=== PATIENT | male | born 1970 | race Caucasian/White ===

== ENCOUNTER → 2023-12-14 07:45 | Outpatient (REF) | payer OTHER, SELFPAY | LOC: WOUND 07:45 | PROVIDERS: ATTENDING PHYSICIAN Surgery; FAMILY PHYSICIAN Registered Nurse | DX: I83.214 Varicose veins of right lower extremity with both ulcer of heel and midfoot and inflammation (principal); I83.224 Varicose veins of left lower extremity with both ulcer of heel and midfoot and inflammation; L97.412 Non-pressure chronic ulcer of right heel and midfoot with fat layer exposed; L97.422 Non-pressure chronic ulcer of left heel and midfoot with fat layer exposed; I87.2 Venous insufficiency (chronic) (peripheral); I73.9 Peripheral vascular disease, unspecified; D56.1 Beta thalassemia; Z86.19 Personal history of other infectious and parasitic diseases; Z72.0 Tobacco use; G89.4 Chronic pain syndrome; R74.8 Abnormal levels of other serum enzymes | CPT/HCPCS: 11042; 99204 ==

== ENCOUNTER → 2024-01-04 10:38 | Outpatient (REF) | payer OTHER, SELFPAY | LOC: WOUND 10:38 | PROVIDERS: ATTENDING PHYSICIAN Surgery; FAMILY PHYSICIAN Registered Nurse | DX: I83.214 Varicose veins of right lower extremity with both ulcer of heel and midfoot and inflammation (principal); L97.412 Non-pressure chronic ulcer of right heel and midfoot with fat layer exposed; L97.422 Non-pressure chronic ulcer of left heel and midfoot with fat layer exposed; I87.2 Venous insufficiency (chronic) (peripheral); I73.9 Peripheral vascular disease, unspecified; D56.1 Beta thalassemia; Z90.81 Acquired absence of spleen; Z86.19 Personal history of other infectious and parasitic diseases; Z72.0 Tobacco use; G89.4 Chronic pain syndrome; R74.8 Abnormal levels of other serum enzymes | CPT/HCPCS: 11042 ==

== ENCOUNTER → 2024-01-28 10:37 | Outpatient (REF) | payer OTHER, SELFPAY | LOC: WOUND 10:37 | PROVIDERS: ATTENDING PHYSICIAN Surgery; FAMILY PHYSICIAN Registered Nurse | DX: I83.214 Varicose veins of right lower extremity with both ulcer of heel and midfoot and inflammation (principal); I83.224 Varicose veins of left lower extremity with both ulcer of heel and midfoot and inflammation; L97.422 Non-pressure chronic ulcer of left heel and midfoot with fat layer exposed; I73.9 Peripheral vascular disease, unspecified; D56.1 Beta thalassemia; G89.4 Chronic pain syndrome; R74.8 Abnormal levels of other serum enzymes; Z72.0 Tobacco use; Z86.19 Personal history of other infectious and parasitic diseases; Z90.81 Acquired absence of spleen | CPT/HCPCS: 11042 ==

== ENCOUNTER → 2024-02-11 10:26 | Outpatient (REF) | payer OTHER, SELFPAY | LOC: WOUND 10:26 | PROVIDERS: ATTENDING PHYSICIAN Surgery; FAMILY PHYSICIAN Registered Nurse | DX: I83.214 Varicose veins of right lower extremity with both ulcer of heel and midfoot and inflammation (principal); I83.224 Varicose veins of left lower extremity with both ulcer of heel and midfoot and inflammation; L97.412 Non-pressure chronic ulcer of right heel and midfoot with fat layer exposed; L97.422 Non-pressure chronic ulcer of left heel and midfoot with fat layer exposed; I87.2 Venous insufficiency (chronic) (peripheral); I73.9 Peripheral vascular disease, unspecified; D56.1 Beta thalassemia; G89.4 Chronic pain syndrome; Z90.81 Acquired absence of spleen; Z86.19 Personal history of other infectious and parasitic diseases; Z72.0 Tobacco use; R74.8 Abnormal levels of other serum enzymes | CPT/HCPCS: 99213; 99406 ==

== ENCOUNTER → 2024-02-29 11:01 | Outpatient (REF) | payer OTHER, SELFPAY | LOC: WOUND 11:01 | PROVIDERS: ATTENDING PHYSICIAN Surgery; FAMILY PHYSICIAN Registered Nurse | DX: I83.214 Varicose veins of right lower extremity with both ulcer of heel and midfoot and inflammation (principal); I83.224 Varicose veins of left lower extremity with both ulcer of heel and midfoot and inflammation; L97.412 Non-pressure chronic ulcer of right heel and midfoot with fat layer exposed; L97.422 Non-pressure chronic ulcer of left heel and midfoot with fat layer exposed; I73.9 Peripheral vascular disease, unspecified; D56.1 Beta thalassemia; G89.4 Chronic pain syndrome; R74.9 Abnormal serum enzyme level, unspecified; Z86.19 Personal history of other infectious and parasitic diseases; Z90.81 Acquired absence of spleen | CPT/HCPCS: 11042 ==

== ENCOUNTER → 2024-02-29 11:55 | Outpatient (REF) | payer OTHER, SELFPAY | LOC: RAD 11:55 | PROVIDERS: ATTENDING PHYSICIAN Registered Nurse | DX: M54.12 Radiculopathy, cervical region (principal) | CPT/HCPCS: 72040 ==

== ENCOUNTER → 2024-03-21 11:00 | Outpatient (REF) | payer OTHER, SELFPAY | LOC: WOUND 11:00 | PROVIDERS: ATTENDING PHYSICIAN Surgery; FAMILY PHYSICIAN Registered Nurse | DX: I83.214 Varicose veins of right lower extremity with both ulcer of heel and midfoot and inflammation (principal); I83.224 Varicose veins of left lower extremity with both ulcer of heel and midfoot and inflammation; L97.412 Non-pressure chronic ulcer of right heel and midfoot with fat layer exposed; L97.422 Non-pressure chronic ulcer of left heel and midfoot with fat layer exposed; I87.2 Venous insufficiency (chronic) (peripheral); I73.9 Peripheral vascular disease, unspecified; D56.1 Beta thalassemia; Z90.81 Acquired absence of spleen; Z86.19 Personal history of other infectious and parasitic diseases; Z72.0 Tobacco use; G89.4 Chronic pain syndrome; R74.8 Abnormal levels of other serum enzymes | CPT/HCPCS: 11042; 11045 ==

== ENCOUNTER 2024-03-22 09:11 | Emergency (ER) | payer OTHER, SELFPAY ==
[2024-03-22 09:23] VITALS: BP 126/81
--- NOTE | 2024-03-22 11:00 | ED.GENMED ---
History of Present Illness
General
Chief Complaint: Skin Problem
Source: patient
Time Seen by Provider: 03/22/24 10:41
History of Present Illness
History of Present Illness:
53-year-old male with past medical history of beta thalassemia major, peripheral vascular disease presenting to the emergency department for evaluation after he had wound debridement done yesterday at the wound care center on his right ankle, after
getting home noticed that he was bleeding through the debridement site. Patient states that he is still had some bleeding which is what prompted him to come to the ER today. States he did not contact anybody at the [facility] center prior to coming.
Denies any other symptoms other than localized pain/soreness around the debridement site.
Past History
Past History
ED Past Medical History: Asthma, Other (Alpha thallasemia, receives q3 weekly blood transfusions, Hep C, chronic right ankle ulcerations) and Other (beta-thalassemia)
ED Past Surgical History: Other (splenectomy)
Social History
Tobacco: Smoker
Alcohol: Occasional
Drug: None
Personal:
Living: with family
Employment: Employed
Family History
Family History: Other
Review of Systems
Review of Systems
All Other Systems: ROS reviewed and negative except as documented in HPI and ROS
Phy Exam
Physical Exam
Physical Exam:
GENERAL: Alert , in no apparent distress
EYE: conjunctiva clear
Head: Normocephalic atraumatic
NECK: Supple,
ENT: mmm.
LUNGS: no acute respiratory distress
NEUROLOGICAL: Alert and oriented
SKIN: Warm and dry, 2.5x1cm superficial PVD wound to right medial ankle, scab in place, no active bleeding, no surrounding erythema
MUSCULOSKELETAL: well perfused.
PSYCH: Normal and appropriate interaction.
Scores
Heart Failure Risk
Heart Failure Risk Score: Not Applicable
Heart Score for Chest Pain Patients
STEMI patient?: Not applicable
Withdrawal Assessment of Alcohol
Withdrawal Assessment Completed?: Not applicable
Course
Vital Signs
Initial and Last Documented VS:
Initial Vital Signs
Temp Pulse Resp BP Pulse Ox
98.0 F 92 18 126/81 98
03/22/24 09:23 03/22/24 09:23 03/22/24 09:23 03/22/24 09:23 03/22/24 09:23
Last Documented Vital Signs
Temp Pulse Resp BP Pulse Ox
98.0 F 92 18 126/81 98
03/22/24 09:23 03/22/24 09:23 03/22/24 09:23 03/22/24 09:23 03/22/24 09:23
MDM/Problems Addressed
MDM/Problems Addressed:
53 y/o male presenting to the ED for evaluation after noticing some bleeding from his debridement site to the right ankle yesterday. Bleeding persisted this morning prompting him to come to the ER. Patient hemodynamically stable and in no acute
distress. Wound was noted and there is a scab overlying the area without any active bleeding. Another pressure dressing was applied to the area. I did notify patient's wound care doctor, Dr. Crouch, who is in agreement with this plan and
recommends patient leave the bandage in place for 48 hours prior to changing. Patient can follow-up as he has scheduled.
Chronic conditions affecting care: PVD
Acute Exacerbation and/or Progression of Chronic Illness: PVD
*Pulse Oximetry
Patient hypoxic: no
*Critical Care Note
Total Time (30-74mins, 75-104mins- exclusive of procedures): Not Applicable
Patient Management
Discussion with other providers: [facility] Worker
ED Attending Note
-
Portions of this chart may have been created with voice recognition software.� Occasional wrong word or��sound alike� substitutions may have occurred due to the inherent limitations of voice recognition software.
Discharge Plan
Departure
Patient Disposition: Home (Routine Discharge)
Date of Disposition: 03/22/24
Time of Disposition: 11:00
Patient with high blood pressure during this ER visit?: No
Discharge Problem:
Bleeding from wound
Instructions: Wound Care (DC)
Prescriptions:
No Action
pediatric multivitamin 1 EACH tablet,chewable
1 ea PO DAILY
hydrochlorothiazide 12.5 MG capsule
25 mg PO DAILY
ergocalciferol (vitamin D2) [Vitamin D] 50,000 UNIT capsule
50,000 unit PO WEEKLY
fluticasone propion-salmeterol [Advair Diskus] 1 DISK blister with device
1 puff inhalation BID
albuterol sulfate 1 PUFF HFA aerosol inhaler
1 puff inhalation DAILYPRN PRN (Reason: RESCUE INHALER)
deferasirox [Jadenu] 180 MG tablet
5 tab PO DAILY
testosterone [AndroGel] 2.5 GRAM gel in packet
2.5 gm topical DAILY
hydrocodone-acetaminophen 5-325 mg tablet
1 tab PO Q6H PRN (Reason: Pain) Qty: 12 0RF
Activity Restrictions/Additional Instructions:
Leave dressing in place for 48 hours and then okay to resume dressing changes
Interventions
Interventions:
*Risk Screen - Suicide Last Done: 03/22/24 09:26
*General Assessment Last Done: 03/22/24 09:26
*Neglect/Abuse Screening Last Done: 03/22/24 09:26
*ED COVID-19 Vaccine History Last Done: 03/22/24 09:26
Discharge Date and Time
Print Language: MONEGASQUE
== END 2024-03-22 11:39 | disposition home or self-care (01) ==
LOC: EMR 09:11
PROVIDERS: EMERGENCY PHYSICIAN Student in an Organized Health Care Education/Training Program; FAMILY PHYSICIAN Registered Nurse
DX: L76.21 Postprocedural hemorrhage of skin and subcutaneous tissue following a dermatologic procedure (principal); Y83.8 Other surgical procedures as the cause of abnormal reaction of the patient, or of later complication, without mention of misadventure at the time of the procedure; D56.1 Beta thalassemia; J45.909 Unspecified asthma, uncomplicated; I73.9 Peripheral vascular disease, unspecified; F17.200 Nicotine dependence, unspecified, uncomplicated; Z90.81 Acquired absence of spleen; Z88.5 Allergy status to narcotic agent
CPT/HCPCS: 99282

== ENCOUNTER → 2024-06-26 08:10 | Outpatient (REF) | payer OTHER, SELFPAY | LOC: RAD 08:10 | PROVIDERS: ATTENDING PHYSICIAN Registered Nurse | DX: M81.6 Localized osteoporosis [Lequesne] (principal); M54.12 Radiculopathy, cervical region | CPT/HCPCS: 76536; 77080 ==

== ENCOUNTER 2024-12-21 06:54 | Outpatient (RCR) | payer OTHER, SELFPAY | END 2024-12-21 23:59 | disposition home or self-care (01) | LOC: RPT 06:54 | PROVIDERS: ATTENDING PHYSICIAN Physician Assistant Medical; FAMILY PHYSICIAN Registered Nurse | DX: M54.12 Radiculopathy, cervical region (principal); Z73.6 Limitation of activities due to disability | CPT/HCPCS: 97110; 97162 ==

== ENCOUNTER 2024-12-27 18:06 | Outpatient (RCR) | payer OTHER, SELFPAY | END 2024-12-27 23:59 | disposition home or self-care (01) | LOC: RPT 18:06 | PROVIDERS: ATTENDING PHYSICIAN Physician Assistant Medical; FAMILY PHYSICIAN Registered Nurse | DX: M54.12 Radiculopathy, cervical region (principal); Z73.6 Limitation of activities due to disability | CPT/HCPCS: 97110 ==

== ENCOUNTER → 2025-03-03 06:41 | Outpatient (REF) | payer OTHER, SELFPAY | LOC: MRI 3T 06:41 | PROVIDERS: ATTENDING PHYSICIAN Student in an Organized Health Care Education/Training Program; FAMILY PHYSICIAN Registered Nurse | DX: M54.12 Radiculopathy, cervical region (principal); M54.2 Cervicalgia; M47.812 Spondylosis without myelopathy or radiculopathy, cervical region | CPT/HCPCS: 72141 ==